=== PATIENT | male | born 1960 | race Caucasian/White ===

== ENCOUNTER 2018-05-28 16:37 | Inpatient (IN) ==
[2018-05-28] MEDS ORDERED: Insulin Human Regular 10 UNIT in 0.9 % Sodium Chloride 10 ML IV ONE (17:05)
--- NOTE | 2018-05-28 17:06 | Emergency Department Note ---
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 insulin use: unspecified fci insulin use status Diabetes mellitus complication status: without complication Qualified Code(s): E11.9 - Type 2 diabetes mellitus without complications Disposition: Admitted As Inpatient Referrals: Elie Plummer MD [Primary Care Provider] - Forms: ED Satisfaction Letter, Work/School Release Time of Disposition: 18:44 (Dr Valles accepted him) General Adult HPI - General Chief complaint: ED General Medical Stated complaint: Hyperglycemia >500 Source: EMS Limitations: no limitations - History of Present Illness HPI Narrative: Patient is a pleasant 57 YO M with past medical history significant for HTN, DM , Dyslipidemia and obesity who is presenting to [facility] Emergency Room with a chief complaint off weakness. EMS reports very elevated BS. Pt c/o dizziness and SOB as well as vague abd pain. He takes his metformin and reports no change in diet or any source of infectious process. Patient denies any fever , chills or night sweats. Pt also denies any eye pain or visual disturbances. There is no sore throat, nasal drainages or facial congestion. There is no chest pain, palpitations or racing heart. Pt also denies any shortness of breath, cough or chest congestion. There is no vomiting or diarrhea. There is no urgency, frequency or dysuria. There is no muskulo-skeletal pain, arthralgia or back pain. Patient also denies any rash, edema or pruritus. There is no neurological manifestations, no headache, no vertigo or weakness. The patient also denies any anxiety, depression, hallucinations and has no homicidal or suicidal ideations. There is no polyuria, polydipsia or recent weight change. There is no easy bruising or bleeding. Review of other systems is otherwise negative except above. 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 Pain Scale: 0 - Related Data Home Medications Medication Instructions Recorded Confirmed metFORMIN [Glucophage] 1,000 mg PO BIDWM 09/28/15 05/28/18 Amlodipine Besylate 10 mg PO DAILY 03/24/16 05/28/18 Fenofibrate Nanocrystallized 145 mg PO DAILY 03/24/16 05/28/18 [Tricor] Furosemide [Lasix] 40 mg PO DAILY PRN 03/24/16 05/28/18 Pravastatin Sodium [Pravachol] 80 mg PO HS 03/24/16 05/28/18 Losartan-Hctz 100-25 mg Tab 1 tab PO DAILY 10/30/17 05/28/18 Venlafaxine HCl [Venlafaxine HCl 150 mg PO DAILY 10/30/17 05/28/18 ER] Previous Rx's Medication Instructions Recorded Ondansetron ODT [Zofran ODT] 4 mg SL Q6HR #24 tab.rapdis 10/30/17 Allergies Allergy/AdvReac Type Severity Reaction Status Date / Time lisinopril AdvReac Cough Verified 10/30/17 19:03 All systems ED: reviewed and negative except as stated. Review of Systems: As Per HPI Constitutional: Denies: fever, chills Eyes: Denies: eye pain, eye discharge ENT ED: Denies: ear pain, throat pain Cardiovascular: Denies: chest pain, palpitations Respiratory: Denies: cough, dyspnea Gastrointestinal: Reports: nausea. Denies: abdominal pain, vomiting Past Medical History - Past Medical History Medical history: Reports: diabetes, hyperlipidemia, hypertension Surgical history: Reports: orthopedic, other (Left shoulder, right elbow, back surgery), other Psychiatric history: Reports: panic disorder - Social History Smoking Status: Current every day smoker Smokeless Tobacco Status: Yes Alcohol use: Reports: none Drug use: Reports: none Physical Exam - General Limitations: no limitations General appearance: alert, lethargic - Head Head exam: atraumatic, normocephalic, normal inspection - Eye Eye exam: Present: normal appearance, PERRL, EOMI - Expanded Eye Exam Pupils: Left: reactive - ENT ENT exam: normal exam, normal oropharynx, mucous membranes moist - Expanded ENT Exam External ear exam: Present: normal external inspection Mouth exam: Present: normal external inspection Teeth exam: Present: normal inspection Throat exam: Present: normal inspection - Neck Neck exam: Present: normal inspection, full ROM, trachea midline - Chest Chest inspection: Present: normal inspection, symmetric chest wall rise - Respiratory Respiratory exam: Present: normal lung sounds bilaterally - Cardiovascular Cardiovascular exam: Present: regular rate, normal rhythm, normal heart sounds - Abdominal Exam Abdominal exam: Present: soft, Non-Tender, other (Repeated abd exam is non tender totally benign after hydration). Absent: tenderness, distention, guarding, rebound, rigidity - Extremities Exam Extremities exam: Present: normal inspection, full ROM. Absent: tenderness, pedal edema - Expanded Upper Extremity Exam Shoulder exam: Present: normal inspection, full ROM Arm exam: Present: normal inspection, full ROM Elbow exam: Present: normal inspection, full ROM Forearm/Wrist exam: Present: normal inspection, full ROM Hand exam: Present: normal inspection, full ROM Vascular exam: Normal: capillary refill, radial pulse - Expanded Lower Extremity Exam Hip/Pelvis exam: Present: normal inspection, full ROM Upper leg exam: Present: normal inspection, full ROM Knee exam: Present: normal inspection, full ROM Lower leg exam: Present: normal inspection, full ROM Ankle exam: Present: normal inspection, full ROM Foot/toe exam: Present: normal inspection, full ROM Neurovascular/Tendon exam: Absent: motor deficit, sensory deficit, tendon deficit - Back Exam Back exam: Present: normal inspection, full ROM. Absent: tenderness - Neurological Exam Neurological exam: Present: alert, oriented X3 - Expanded Neurological Exam Patient oriented to: Present: person, place, time Coma Scale Eye Opening: Spontaneous Coma Scale Motor Response: Obeys Commands Coma Scale Verbal Response: Oriented Coma Scale Total: 15 - Psychiatric Psychiatric exam: Present: normal affect, normal mood - Skin Skin exam: Present: warm, dry, intact, normal color Course Vital Signs Temperature 99.8 F H 05/28/18 16:40 Pulse Rate 110 05/28/18 16:40 Respiratory Rate 14 05/28/18 16:40 Blood Pressure 158/84 05/28/18 16:40 O2 Sat by Pulse Oximetry 94 05/28/18 16:40 Temperature 99.3 F 05/28/18 18:05 Pulse Rate 103 05/28/18 17:50 Respiratory Rate 18 05/28/18 17:50 Blood Pressure 159/80 05/28/18 17:50 O2 Sat by Pulse Oximetry 94 05/28/18 17:50 Oxygen Delivery Oxygen Delivery Room Air Medical Decision Making - MDM Narrative Medical decision making narrative: WE are unable to administer insulin drip at this time due to the unavailability of electrolytes particularly K machine is down DC with pharmacist human capital consultant and he concurred with my plan. Another bolus IV Regular insulin 4 units and hydraion until we get K level ABG r/o DKA his PH is 7.47 - Medical Records Medical records reviewed: Yes I reviewed the patient's medical records. - Lab Data Lab results reviewed: Yes I reviewed the patient's lab results. Result diagrams: 05/28/18 17:45 Lab Results 05/28/18 05/28/18 05/28/18 Range/Units 16:44 16:45 16:46 WBC (4.3-11.1) K/mcL RBC (4.19-5.50) M/mcL Hgb (12.9-16.9) g/dL Hct (37.5-50.1) % MCV (83.0-100.0) fL MCH (28.0-33.3) pg MCHC (31.6-35.5) g/dL RDW (11.5-14.5) % Plt Count (140-400) K/mcL MPV (9.4-12.4) fL Immature Gran % (0-4) % Seg Neutrophils % % Lymphocytes % % Monocytes % % Eosinophils % % Basophils % % Neutrophils # (1.6-8.9) K/mcL Lymphocytes # (0.6-4.6) K/mcL Monocytes # (0.0-1.3) K/mcL Eosinophils # (0.0-0.6) K/mcL Basophils # (0.0-0.2) K/mcL PT (9.4-12.1) Seconds INR APTT Sample Site ABG pH (7.32-7.45) pH Units ABG pCO2 (35-45) mmHg ABG pO2 (85-104) mmHg ABG HCO3 (21-27) mEq/L ABG Total CO2 (20-26) mEq/L ABG O2 Saturation (95-98) % ABG Base Excess (-2 to 3) mEq/L Jc Test O2 Delivery Device Inspired O2 (1-15=lpm [id number]=%) POC Glucose > 600 H* > 600 H* (70-99) mg/dL Troponin I (< 0.04) ng/mL Urine Color Light Yellow (Yellow) Urine Clarity Clear (Clear) Urine pH 5.0 (5.0-8.0) pH Units Ur Specific [place] <= 1.005 L (1.010-1.025) Urine Protein 30 H (Neg-Trace) mg/dL Urine Glucose (UA) >=1000 H (Normal) mg/dL Urine Ketones Negative (Negative) mg/dL Urine Blood Small H (Negative) Urine Nitrite Negative (Negative) Urine Bilirubin Negative (Negative) Urine Urobilinogen Normal (Normal) mg/dL Ur Leukocyte Esterase Negative (Negative) Urine Microscopic RBC 3-5 H (0-3) per hpf Urine Microscopic WBC 0-3 (0-3) per hpf Urine Yeast Many H (None Seen) per hpf Ur Culture Indicated? NO (NO) 05/28/18 05/28/18 05/28/18 Range/Units 17:45 17:45 17:45 WBC 13.6 H (4.3-11.1) K/mcL RBC 4.71 (4.19-5.50) M/mcL Hgb 15.6 (12.9-16.9) g/dL Hct 43.3 (37.5-50.1) % MCV 91.9 (83.0-100.0) fL MCH 33.1 (28.0-33.3) pg MCHC 36.0 H (31.6-35.5) g/dL RDW 12.2 (11.5-14.5) % Plt Count 179 (140-400) K/mcL MPV 12.2 (9.4-12.4) fL Immature Gran % 0.4 (0-4) % Seg Neutrophils % 93.2 % Lymphocytes % 2.4 % Monocytes % 3.5 % Eosinophils % 0.2 % Basophils % 0.3 % Neutrophils # 12.7 H (1.6-8.9) K/mcL Lymphocytes # 0.3 L (0.6-4.6) K/mcL Monocytes # 0.5 (0.0-1.3) K/mcL Eosinophils # 0.0 (0.0-0.6) K/mcL Basophils # 0.0 (0.0-0.2) K/mcL PT 11.0 (9.4-12.1) Seconds INR 1.0 APTT TNP Sample Site ABG pH (7.32-7.45) pH Units ABG pCO2 (35-45) mmHg ABG pO2 (85-104) mmHg ABG HCO3 (21-27) mEq/L ABG Total CO2 (20-26) mEq/L ABG O2 Saturation (95-98) % ABG Base Excess (-2 to 3) mEq/L Jc Test O2 Delivery Device Inspired O2 (1-15=lpm [id number]=%) POC Glucose (70-99) mg/dL Troponin I < 0.03 (< 0.04) ng/mL Urine Color (Yellow) Urine Clarity (Clear) Urine pH (5.0-8.0) pH Units Ur Specific [place] (1.010-1.025) Urine Protein (Neg-Trace) mg/dL Urine Glucose (UA) (Normal) mg/dL Urine Ketones (Negative) mg/dL Urine Blood (Negative) Urine Nitrite (Negative) Urine Bilirubin (Negative) Urine Urobilinogen (Normal) mg/dL Ur Leukocyte Esterase (Negative) Urine Microscopic RBC (0-3) per hpf Urine Microscopic WBC (0-3) per hpf Urine Yeast (None Seen) per hpf Ur Culture Indicated? (NO) 05/28/18 05/28/18 Range/Units 17:45 18:01 WBC (4.3-11.1) K/mcL RBC (4.19-5.50) M/mcL Hgb (12.9-16.9) g/dL Hct (37.5-50.1) % MCV (83.0-100.0) fL MCH (28.0-33.3) pg MCHC (31.6-35.5) g/dL RDW (11.5-14.5) % Plt Count (140-400) K/mcL MPV (9.4-12.4) fL Immature Gran % (0-4) % Seg Neutrophils % % Lymphocytes % % Monocytes % % Eosinophils % % Basophils % % Neutrophils # (1.6-8.9) K/mcL Lymphocytes # (0.6-4.6) K/mcL Monocytes # (0.0-1.3) K/mcL Eosinophils # (0.0-0.6) K/mcL Basophils # (0.0-0.2) K/mcL PT (9.4-12.1) Seconds INR APTT Sample Site L Radial ABG pH 7.47 H (7.32-7.45) pH Units ABG pCO2 32 L (35-45) mmHg ABG pO2 81 L (85-104) mmHg ABG HCO3 23 (21-27) mEq/L ABG Total CO2 24 (20-26) mEq/L ABG O2 Saturation 97 (95-98) % ABG Base Excess 0 (-2 to 3) mEq/L Jc Test Positive O2 Delivery Device Room Air Inspired O2 21.0 (1-15=lpm [id number]=%) POC Glucose > 600 H* (70-99) mg/dL Troponin I (< 0.04) ng/mL Urine Color (Yellow) Urine Clarity (Clear) Urine pH (5.0-8.0) pH Units Ur Specific [place] (1.010-1.025) Urine Protein (Neg-Trace) mg/dL Urine Glucose (UA) (Normal) mg/dL Urine Ketones (Negative) mg/dL Urine Blood (Negative) Urine Nitrite (Negative) Urine Bilirubin (Negative) Urine Urobilinogen (Normal) mg/dL Ur Leukocyte Esterase (Negative) Urine Microscopic RBC (0-3) per hpf Urine Microscopic WBC (0-3) per hpf Urine Yeast (None Seen) per hpf Ur Culture Indicated? (NO) - Radiology Data Radiology results reviewed: Yes I reviewed the patient's radiology results.
[2018-05-28 17:13] LABS: Bilirubin,Urine Negative (Negative); Blood,Urine Small (Negative); Clarity,Urine Clear (Clear); Color,Urine Light Yellow (Yellow); Glucose,Urine (UA) >=1000 mg/dL (Normal); Ketones,Urine Negative (Negative); Leukocyte Esterase,Urine Negative (Negative); Nitrite,Urine Negative (Negative); Protein,Urine 30 mg/dL (Neg-Trace); Specific Gravity,Urine <= 1.005 (1.010-1.025); Urobilinogen,Urine Normal (Normal)
[2018-05-28 17:20] LABS: WBC,Urine 0-3 per hpf (0-3); Yeast,Urine Many per hpf (None Seen)
[2018-05-28] MEDS: 0.9 % Sodium Chloride 1,000 ML IVC SCH ×2 (17:25→19:10)
[2018-05-28 17:47] LABS: ABG Base Excess 0 mEq/L (-2 to 3); ABG HCO3 23 mEq/L (21-27); ABG Oxygen Saturation 97 % (95-98); ABG PCO2 32 mmHg (35-45); ABG PH 7.47 pH Units (7.32-7.45); ABG PO2 81 mmHg (85-104); ABG TCO2 24 mEq/L (20-26)
[2018-05-28 18:12] LABS: Troponin I < 0.03 ng/mL (< 0.04)
[2018-05-28 18:23] LABS: Basophils % 0.3 %; Eosinophils % 0.2 %; Hematocrit 43.3 % (37.5-50.1); Hemoglobin 15.6 g/dL (12.9-16.9); Immature Granulocytes % 0.4 % (0-4); Lymphocytes # 0.3 K/mcL (0.6-4.6); Lymphocytes % 2.4 %; Mean Corpuscular Hemoglobin 33.1 pg (28.0-33.3); Mean Corpuscular Volume 91.9 fL (83.0-100.0); Monocytes # 0.5 K/mcL (0.0-1.3); Monocytes % 3.5 %; Red Blood Count 4.71 M/mcL (4.19-5.50); Red Cell Distribution Width 12.2 % (11.5-14.5); Segmented Neutrophils % 93.2 %
[2018-05-28 18:30] LABS: Neutrophils # 12.7 K/mcL (1.6-8.9); Platelet Count 179 K/mcL (140-400)
[2018-05-28] MEDS ORDERED: 0.9 % Sodium Chloride 1,000 ML IVC ONE (18:30)
[2018-05-28 18:31] LABS: Mean Platelet Volume 12.2 fL (9.4-12.4)
[2018-05-28] MEDS ORDERED: Insulin Regular, Human 100 UNIT/ML IV ONE (18:34)
[2018-05-28] MEDS ORDERED: Naloxone 0.4 MG/ML INJ IVP PRN ×2 (18:51→22:28)
[2018-05-28] MEDS ORDERED: 0.9 % Sodium Chloride 1,000 ML IVC SCH ×2 (19:00→22:28)
[2018-05-28 21:30] LABS: Alanine Aminotransferase 22 Units/L (7-52); Albumin/Globulin Ratio 1.7 (1.1-2.2); Alkaline Phosphatase 119 Units/L (34-104); Aspartate Amino Transferase 16 Units/L (13-39); BUN/Creatinine Ratio 17 (6-26); Bilirubin,Indirect 0.5 mg/dL (0.0-1.2); Bilirubin,Total 0.5 mg/dL (0.3-1.0); Blood Urea Nitrogen 19 mg/dL (6-20); Calcium 7.9 mg/dL (8.6-10.3); Carbon Dioxide 14 mEq/L (23-29); Chloride 85 mEq/L (98-107); Globulin 1.8 g/dL (2.4-3.5); Glucose 734 mg/dL (70-105); Magnesium 1.4 mg/dL (1.6-2.6); Osmolality,Calculated 274 (280-300); Phosphorous 3.6 mg/dL (2.7-4.5); Potassium 3.1 mEq/L (3.5-5.1); Sodium 113 mEq/L (136-145); Total Protein 4.8 g/dL (6.4-8.9); eGFR For Non-African Americans > 60 (> 60)
[2018-05-28] MEDS ORDERED: Potassium Effervescent 25 MEQ TABLET.EFF PO ONE ×2 (21:34→22:28)
[2018-05-28] MEDS ORDERED: 0.9 % Sodium Chloride w KCl 20 MEQ/1,000 ML MLS IVC SCH ×2 (21:45→22:28)
[2018-05-28] MEDS ORDERED: Furosemide 40 MG TABLET PO PRN (22:28)
[2018-05-28] MEDS ORDERED: Insulin LISPRO 300 UNITS/3 ML VIAL SQ ONE (22:29)
[2018-05-28] MEDS: Magnesium Oxide 400 MG TABLET PO SCH (22:30)
[2018-05-28] MEDS ORDERED: *HR* Dextrose 50 % in Water (Syg) 50 ML SYRINGE IVP PRN (22:35)
[2018-05-28] MEDS ORDERED: D5% in Water 1,000 ML IVC PRN (22:35)
[2018-05-28] MEDS ORDERED: Dextrose Gel 15 GM/37.5 ML TUBE PO PRN ×2 (22:35)
--- NOTE | 2018-05-28 22:47 | Internal Med History&Physical ---
Date of Encounter: 05/28/18 Time of Encounter: 22:10 Assessment and Plan (1) Diabetes mellitus Current visit: Yes Status: Acute Suspect poorly controlled. Hyperglycemia will be treated with initially insulin bolus and Accu-Cheks with SSI. Hemoglobin A1c will be checked in a.m. 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 Will continue amlodipine. Qualifiers: Hypertension type: essential hypertension Qualified Code(s): I10 - Essential (primary) hypertension (3) Hyponatremia Current visit: Yes Status: Acute Suspect due to diuretic use and excessive hyperglycemia. Will recheck in a.m. (4) Hypokalemia Current visit: Yes Status: Acute Suspect due to diuretic use. Supplemental potassium has been ordered. (5) Hypomagnesemia Current visit: Yes Status: Acute Suspect due to diuretic use. Magnesium oxide has been ordered. (6) Low TSH level Current visit: Yes Status: Acute TSH was suppressed at 0.033 on 10/30/2017. Recheck in a.m. (7) Gout Current visit: Yes Status: Acute Check uric acid level in a.m. Qualifiers: Gout site: unspecified site Gout etiology: unspecified cause Chronicity: chronic Presence of tophus: without tophus Qualified Code(s): M1A.9XX0 - Chronic gout, unspecified, without tophus (tophi) (8) Low vitamin B12 level Current visit: Yes Status: Acute B12 was 204 on 02/01/2015. Recheck in a.m. Internal Medicine - H&P: HPI Chief complaint: Lethargy and weakness Admitted From: Emergency Dept Plans for Post Hospital Care: Home History of present illness: Mr. Ruiz is a 57 year old male who came to emergency room after family reported him to have weakness and "feeling bad". He reports onset was last evening. He denies pain dyspnea vomiting or diarrhea. He felt he had chills today but had no fever. He was evaluated in emergency room and found to have hyperglycemia with multiple electrolyte imbalances. He was admitted to [facility] floor for ongoing care needs. He is lethargic and frequently falls asleep between questions. Past Med Surg Social Fam HX - Past Medical History Medical history: diabetes, hyperlipidemia, hypertension Psychiatric history: panic disorder - Past Surgical History Surgical History: orthopedic, other (Left shoulder, right elbow, back surgery), other Additional surgical history: back surgery. left shoulder injury. right elbow sx - Social History Smoking Status: Current every day smoker Smokeless Tobacco Status: Yes Alcohol use: none Drug use: none Internal Medicine - H&P: Meds metFORMIN [Glucophage] 1,000 mg PO BIDWM 09/28/15 [History] Amlodipine Besylate 10 mg PO DAILY 03/24/16 [History] Fenofibrate Nanocrystallized [Tricor] 145 mg PO DAILY 03/24/16 [History] Furosemide [Lasix] 40 mg PO DAILY PRN 03/24/16 [History] Pravastatin Sodium [Pravachol] 80 mg PO HS 03/24/16 [History] Losartan-Hctz 100-25 mg Tab 1 tab PO DAILY 10/30/17 [History] Ondansetron ODT [Zofran ODT] 4 mg SL Q6HR #24 tab.rapdis 10/30/17 [Rx] Venlafaxine HCl [Venlafaxine HCl ER] 150 mg PO DAILY 10/30/17 [History] 3 Allergy/AdvReac Type Severity Reaction Status Date / Time lisinopril AdvReac Cough Verified 10/30/17 19:03 All Systems PM: A 10-system review of systems was performed and is negative for pertinent findings except as documented above in the HPI. Review of systems: Review of systems is primarily obtained from patient's . Gen.: His weight is stable the past few months Cardiovascular: He has history of hypertension but denies AL heart failure DVT or pulmonary embolus. He has a history of irregular heart rate but cannot give further details. Respiratory: He has smoked since age 18 up to 2 packs per day. He denies known chronic lung disease. He has GABBIE and has been prescribed CPAP but does not use it regularly. GI: Denies disorders of his liver gallbladder or exocrine pancreas : He denies hematuria dysuria or kidney stones Neurologic: He denies large distribution strokes or seizures. Endocrine: He was diagnosed with DM 2 approximately 2013. He has hyperlipidemia but no known thyroid disease. Hematology/oncology: No history of blood disorders cancers or anemia Psychiatric: He has anxiety depression but denies other mental health issues [place] skeletal: He has been diagnosed with gout. He has had 2 back surgeries with fusion of multiple lumbar vertebra. He denies other bone joint or muscle disorders. - Constitutional Vitals: Temp Pulse Resp BP Pulse Ox 98.0 F 85 13 149/89 96 05/28/18 22:02 05/28/18 22:02 05/28/18 22:23 05/28/18 22:23 05/28/18 22:02 Exam: Gen.: He is a well-developed overweight male lying in bed who appears in no acute distress. He denies pain or dyspnea HEENT: Head is atraumatic and normal cephalic. Eyes: EOMI. There is no scleral icterus. Mouth: Mucosa is moist. Neck: Supple and nontender. There is no thyromegaly or adenopathy noted. Heart: Regular without murmurs gallops or ectopics Lungs: No wheezes or crackles are heard. Abdomen: Soft and nontender. No masses or guarding are noted. Extremities: He has 1-2+ edema of the lower anterior shins bilaterally. Dorsalis pedis and posttibial pulses are 1-2 over 2 bilaterally. Neurologic: Mental status: He is very lethargic. He will awaken and answer some questions with reasonable answers. Cranial nerves: Smile is symmetric. Forehead wrinkles's bilaterally. Tongue protrudes midline. EOMI. Motor: There is no pronator drift. Cerebellar: Finger to nose is intact bilaterally. Skin: Warm and dry Internal Med - H&P Results - Labs CBC & Chem 7: 05/28/18 17:45 05/28/18 17:45
[2018-05-28] MEDS: cefTRIAXone 1,000 MG in Water for inj. (sterile) 20 ML 10 ML IVP SCH (23:33)
[2018-05-28] MEDS: Azithromycin 500 MG in D5% in Water 250 ML IVPB SCH (23:34)
[2018-05-28] MEDS: 0.9 % Sodium Chloride w KCl 20 MEQ/1,000 ML MLS IVC SCH (23:34)
[2018-05-29 05:11] LABS: Mean Platelet Volume 12.4 fL (9.4-12.4); Platelet Count 177 K/mcL (140-400); Red Blood Count 4.39 M/mcL (4.19-5.50); Red Cell Distribution Width 12.4 % (11.5-14.5)
[2018-05-29 06:36] LABS: Hematocrit 40.1 % (37.5-50.1); Hemoglobin 14.1 g/dL (12.9-16.9); Mean Corpuscular Hemoglobin 32.1 pg (28.0-33.3); Mean Corpuscular Volume 91.3 fL (83.0-100.0)
[2018-05-29 06:38] LABS: Mean Corpuscular HGB Conc 35.2 g/dL (31.6-35.5)
[2018-05-29 07:23] LABS: Amphetamine Screen,Urine Negative ng/mL (Cutoff=1000); Barbiturate Screen,Urine Negative ng/mL (Cutoff=200); Benzodiazepines Screen,Urine Negative ng/mL (Cutoff=200); Cannabinoid Screen,Urine Negative ng/mL (Cutoff = 50); Cocaine Screen,Urine Negative ng/mL (Cutoff= 300); Opiate Screen,Urine Negative ng/mL (Cutoff=300); Phencyclidine Screen,Urine Negative ng/mL (Cutoff=25)
[2018-05-29 07:26] LABS: Alanine Aminotransferase 32 Units/L (7-52); Albumin 3.2 g/dL (3.5-5.7); Albumin/Globulin Ratio 1.6 (1.1-2.2); Alkaline Phosphatase 88 Units/L (34-104); Aspartate Amino Transferase 26 Units/L (13-39); BUN/Creatinine Ratio 16 (6-26); Bilirubin,Total 0.2 mg/dL (0.3-1.0); Blood Urea Nitrogen 16 mg/dL (6-20); Calcium 8.5 mg/dL (8.6-10.3); Carbon Dioxide 22 mEq/L (23-29); Chloride 98 mEq/L (98-107); Glucose 386 mg/dL (70-105); Magnesium 1.8 mg/dL (1.6-2.6); Osmolality,Calculated 295 (280-300); Phosphorous 4.7 mg/dL (2.7-4.5); Potassium 3.4 mEq/L (3.5-5.1); Sodium 134 mEq/L (136-145); Total Protein 5.2 g/dL (6.4-8.9); eGFR For Non-African Americans > 60 (> 60)
[2018-05-29 07:56] LABS: Thyroid Stimulating Hormone 0.136 mcIU/mL (0.340-5.600); Uric Acid 6.8 mg/dL (2.3-7.6)
[2018-05-29] MEDS: Magnesium Oxide 400 MG TABLET PO SCH ×2 (08:01→20:50)
[2018-05-29] MEDS: *HR* Metformin 500 MG TABLET PO SCH ×2 (08:01→16:57)
[2018-05-29] MEDS: Insulin LISPRO 300 UNITS/3 ML VIAL SQ SCH ×3 (08:01→16:56)
[2018-05-29] MEDS: Fenofibrate 54 MG TABLET PO SCH (08:01)
[2018-05-29] MEDS: amLODIPine 5 MG TABLET PO SCH (08:01)
[2018-05-29] MEDS ORDERED: Losartan/HCTZ 50-12.5 TABLET PO SCH (09:00)
[2018-05-29] MEDS ORDERED: Venlafaxine XR (24 HR) 150 MG CAP.ER.24H PO SCH (09:00)
[2018-05-29] MEDS: 0.9 % Sodium Chloride w KCl 20 MEQ/1,000 ML MLS IVC SCH ×2 (09:14→18:26)
[2018-05-29 11:31] LABS: Cholesterol 540 mg/dL (< 200); HDL Cholesterol 18 mg/dL (40-59); Triglycerides > 5000 mg/dL (< 150)
[2018-05-29] MEDS: Ondansetron ODT 4 MG TAB.RAPDIS SL SCH ×3 (11:57→16:58)
[2018-05-29 13:22] LABS: Estimated Average Glucose 415 mg/dl; Hemoglobin A1C 16.1 %
--- NOTE | 2018-05-29 16:30 | Internal Med Progress Note ---
Date of Encounter: 05/29/18 Time of Encounter: 16:20 - Assessment and plan (1) Diabetes mellitus Current Visit: Yes Status: Acute Assessment and plan: May 29. Extremely poor control overall with hemoglobin A1c 16.1%. Start basal insulin and add additional oral agents. Continue Accu-Cheks with SSI. 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 Continue amlodipine. Qualifiers: Hypertension type: essential hypertension Qualified Code(s): I10 - Essential (primary) hypertension (3) Hyponatremia Current Visit: Yes Status: Acute Assessment and plan: May 29. Suspect level yesterday was due to combination of hyponatremia from diuretic use and pseudohyponatremia from hyperglycemia and hyperlipidemia. Remain off diuretics, adjust medicine for hyperlipidemia, and monitor labs. (4) Hypokalemia Current Visit: Yes Status: Acute Assessment and plan: May 29. Potassium improved to 3.4. Continue present regimen. (5) Hypomagnesemia Current Visit: Yes Status: Acute Assessment and plan: May 29. Magnesium level improved to 1.8. Continue magnesium oxide supplement. (6) Low TSH level Current Visit: Yes Status: Acute Assessment and plan: May 29. Improved since October 2017 level of 0.033. Check T4 and T3 levels. (7) Gout Current Visit: Yes Status: Acute Assessment and plan: May 29. Uric acid level stable at 6.8. Continue to observe off medication. Qualifiers: Gout site: unspecified site Gout etiology: unspecified cause Chronicity: chronic Presence of tophus: without tophus Qualified Code(s): M1A.9XX0 - Chronic gout, unspecified, without tophus (tophi) (8) Low vitamin B12 level Current Visit: Yes Status: Acute Assessment and plan: May 29. B12 level low at 125. Will give B12 injection and start oral supplement. (9) Hyperlipidemia Current Visit: Yes Status: Chronic Assessment and plan: May 29. Discontinue Pravachol and start atorvastatin 80 mg daily. Qualifiers: Hyperlipidemia type: mixed hyperlipidemia Qualified Code(s): E78.2 - Mixed hyperlipidemia - Subjective Interval history: May 29. He has no new complaints and feels better. - Constitutional Vitals: Temp Pulse Resp BP Pulse Ox 98.4 F 63 17 162/87 95 05/29/18 15:32 05/29/18 15:32 05/29/18 15:32 05/29/18 15:32 05/29/18 15:32 Exam: He is resting comfortably in bed and appears in no acute distress. His affect is overall cheerful. He is less lethargic than last evening. I reviewed his medications. I discussed pertinent lab results with him. Internal Medicine: Result - Labs CBC & Chem 7: 05/29/18 03:47 05/29/18 03:47 Labs: Short CBC 05/29/18 Range/Units 03:47 WBC 10.7 (4.3-11.1) K/mcL Hgb 14.1 D (12.9-16.9) g/dL Hct 40.1 (37.5-50.1) % Plt Count 177 (140-400) K/mcL BMP 05/29/18 03:47 Sodium 134 L D Potassium 3.4 L Chloride 98 Carbon Dioxide 22 L BUN 16 Creatinine 1.01 Glucose 386 H Calcium 8.5 L Liver Function 05/29/18 Range/Units 03:47 Total Bilirubin 0.2 L (0.3-1.0) mg/dL AST 26 (13-39) Units/L ALT 32 (7-52) Units/L Alkaline Phosphatase 88 (34-104) Units/L Albumin 3.2 L (3.5-5.7) g/dL - ABG Interpretation ABG results: ABG ABG pH 7.47 pH Units (7.32-7.45) H 05/28/18 17:45 ABG pCO2 32 mmHg (35-45) L 05/28/18 17:45 ABG pO2 81 mmHg (85-104) L 05/28/18 17:45 ABG O2 Saturation 97 % (95-98) 05/28/18 17:45 PT/INR, D-dimer PT 11.0 Seconds (9.4-12.1) 05/28/18 17:45 Consult Discharge Plan - Plan Referrals: Elie lPummer MD [Primary Care Provider] - 1 week
[2018-05-29] MEDS ORDERED: Cyanocobalamin (B-12) 1,000 MCG/ML VIAL IM ONE (16:40)
[2018-05-29] MEDS: *HR* SitaGLIPtin 25 MG TABLET PO SCH (18:25)
[2018-05-29] MEDS ORDERED: Insulin DETEMIR 100 UNIT/ML X5UNITS SQ SCH (21:00)
[2018-05-29] MEDS ORDERED: Insulin LISPRO 300 UNITS/3 ML VIAL SQ SCH (21:00)
[2018-05-29] MEDS: cefTRIAXone 1,000 MG in Water for inj. (sterile) 20 ML 10 ML IVP SCH (23:14)
[2018-05-29] MEDS: Azithromycin 500 MG in D5% in Water 250 ML IVPB SCH (23:29)
[2018-05-30] MEDS: Ondansetron ODT 4 MG TAB.RAPDIS SL SCH ×2 (00:31→07:08)
[2018-05-30 06:38] VITALS: BP 128/80
[2018-05-30 06:52] LABS: Basophils % 0.3 %; Eosinophils # 0.1 K/mcL (0.0-0.6); Eosinophils % 1.5 %; Hematocrit 37.9 % (37.5-50.1); Hemoglobin 13.3 g/dL (12.9-16.9); Immature Granulocytes % 0.3 % (0-4); Lymphocytes # 1.7 K/mcL (0.6-4.6); Lymphocytes % 26.2 %; Mean Corpuscular HGB Conc 35.1 g/dL (31.6-35.5); Mean Corpuscular Hemoglobin 32.5 pg (28.0-33.3); Mean Corpuscular Volume 92.7 fL (83.0-100.0); Mean Platelet Volume 12.5 fL (9.4-12.4); Monocytes # 0.5 K/mcL (0.0-1.3); Monocytes % 8.3 %; Neutrophils # 4.1 K/mcL (1.6-8.9); Platelet Count 175 K/mcL (140-400); Red Blood Count 4.09 M/mcL (4.19-5.50); Red Cell Distribution Width 12.9 % (11.5-14.5); Segmented Neutrophils % 63.4 %
[2018-05-30] MEDS: Fenofibrate 54 MG TABLET PO SCH (07:48)
[2018-05-30] MEDS: 0.9 % Sodium Chloride w KCl 20 MEQ/1,000 ML MLS IVC SCH (07:48)
[2018-05-30] MEDS: amLODIPine 5 MG TABLET PO SCH (07:49)
[2018-05-30] MEDS: Magnesium Oxide 400 MG TABLET PO SCH (07:49)
[2018-05-30] MEDS: *HR* Metformin 500 MG TABLET PO SCH (07:49)
[2018-05-30] MEDS: *HR* SitaGLIPtin 25 MG TABLET PO SCH (07:49)
[2018-05-30] MEDS: Insulin LISPRO 300 UNITS/3 ML VIAL SQ SCH (07:52)
[2018-05-30 07:55] LABS: Chloride 101 mEq/L (98-107); Potassium 4.3 mEq/L (3.5-5.1)
[2018-05-30 07:56] LABS: BUN/Creatinine Ratio 13 (6-26); Blood Urea Nitrogen 12 mg/dL (6-20); Calcium 7.9 mg/dL (8.6-10.3); Carbon Dioxide 26 mEq/L (23-29); Glucose 282 mg/dL (70-105); Osmolality,Calculated 294 (280-300); eGFR For Non-African Americans > 60 (> 60)
[2018-05-30] MEDS ORDERED: *HR* Glimepiride 2 MG TABLET PO SCH (08:00)
[2018-05-30 08:04] LABS: Sodium 137 mEq/L (136-145)
[2018-05-30] MEDS ORDERED: Cyanocobalamin (B-12) 1,000 MCG TABLET PO SCH (09:00)
--- NOTE | 2018-05-30 09:52 | Discharge Summary ---
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: unspecified group home insulin use status Diabetes mellitus complication status : without complication Qualified Code(s): E11.9 - Type 2 diabetes mellitus without complications (2) Hypertension Priority: Secondary Status: Chronic Qualifiers: Hypertension type: essential hypertension Qualified Code(s): I10 - Essential (primary) hypertension (3) Hyponatremia Priority: Secondary Status: Resolved (4) Hypokalemia Priority: Secondary Status: Resolved (5) Hypomagnesemia Priority: Secondary Status: Resolved (6) Low TSH level Priority: Secondary Status: Acute (7) Gout Priority: Secondary Status: Chronic Qualifiers: Gout site: unspecified site Gout etiology: unspecified cause Chronicity: chronic Presence of tophus: without tophus Qualified Code(s): M1A.9XX0 - Chronic gout, unspecified, without tophus (tophi) (8) Low vitamin B12 level Priority: Secondary Status: Acute (9) Hyperlipidemia Priority: Secondary Status: Chronic Qualifiers: Hyperlipidemia type: mixed hyperlipidemia Qualified Code(s): E78.2 - Mixed hyperlipidemia Hospital course: Mr. Ruiz is a 57 year old male who came to emergency room after family reported him to have weakness and "feeling bad". He reports onset was last evening. He denies pain dyspnea vomiting or diarrhea. He felt he had chills today but had no fever. He was evaluated in emergency room and found to have hyperglycemia with multiple electrolyte imbalances. He was admitted to [facility] floor for ongoing care needs. Initial orders were written by the emergency room physician. I saw him on May 28 and performed a history and physical. He was started on IV fluids and Accu-Cheks with SSI. Hemoglobin A1c returned significantly abnormal at 16.1 %. Amaryl and Januvia were started. He was given Levemir during hospitalization but will not continue this at home upon discharge. His blood sugars improved to a safe range. I encouraged him to follow a [id number] calorie ADA diet. His PCP can monitor progress. Losartan/HCTZ and Lasix were held. Amlodipine was continued and blood pressure remained well controlled. Electrolyte abnormalities resolved with sodium 137, potassium 4.3, and magnesium 1.8 by time of discharge. Creatinine improved to 0.92. He will remain off losartan/HCTZ and Lasix. B12 level returned low at 246. He was given B12 injection started on oral B12 supplement. TSH returned slightly low at 0.136. Free T3 and T4 were ordered with results pending at time of discharge. He was started on empiric Rocephin and Zithromax for the leukocytosis with left shift seen on admission. CBC and left shift normalized by day of discharge. He remained afebrile. He will continue with antibiotic and probiotic for 2 additional days at home. Lipid profile showed total cholesterol 540, triglycerides> 5000, HDL 18, and total/HDL ratio of 30.0. He was changed from Pravachol to high-dose atorvastatin. Fenofibrate was continued. His PCP can monitor lipid status. On May 30 he felt stable for discharge home. He will follow with his PCP within 1 week. I encouraged him to discontinue smoking. - Time Spent with Patient Total time spent providing and/or coordinating discharge services: - Discharge Medications Prescriptions: Cefuroxime PO [Ceftin] 500 mg PO Q12HR #4 tablet Atorvastatin [Lipitor] 80 mg PO HS #60 tablet Azithromycin [Zithromax] 250 mg PO DAILY #2 tablet Cyanocobalamin (B-12) [Vitamin B12] 1,000 mcg PO DAILY #30 tablet Glimepiride [Amaryl] 2 mg PO 0800 #30 tablet Lactobacillus [Culturelle] 1 each PO BID #4 cap.sprink SitaGLIPtin [Januvia] 100 mg PO DAILY #30 tablet Home Medications: metFORMIN [Glucophage] 1,000 mg PO BIDWM 09/28/15 [History] Amlodipine Besylate 10 mg PO DAILY 03/24/16 [History] Fenofibrate Nanocrystallized [Tricor] 145 mg PO DAILY 03/24/16 [History] Ondansetron ODT [Zofran ODT] 4 mg SL Q6HR #24 tab.rapdis 10/30/17 [Rx] Venlafaxine HCl [Venlafaxine HCl ER] 150 mg PO DAILY 10/30/17 [History] Atorvastatin [Lipitor] 80 mg PO HS #60 tablet 05/30/18 [Rx] Azithromycin [Zithromax] 250 mg PO DAILY #2 tablet 05/30/18 [Rx] Cefuroxime PO [Ceftin] 500 mg PO Q12HR #4 tablet 05/30/18 [Rx] Cyanocobalamin (B-12) [Vitamin B12] 1,000 mcg PO DAILY #30 tablet 05/30/18 [Rx] Glimepiride [Amaryl] 2 mg PO 0800 #30 tablet 05/30/18 [Rx] Lactobacillus [Culturelle] 1 each PO BID #4 cap.sprink 05/30/18 [Rx] SitaGLIPtin [Januvia] 100 mg PO DAILY #30 tablet 05/30/18 [Rx] Allergies/Adverse Reactions: 3 Allergy/AdvReac Type Severity Reaction Status Date / Time lisinopril AdvReac Cough Verified 10/30/17 19:03 Date of admission: 05/28/18 22:55 Primary care physician: Elie Plummer MD - Constitutional Vitals: Temp Pulse Resp BP Pulse Ox 97.8 F 63 16 128/80 96 05/30/18 06:35 05/30/18 06:35 05/30/18 06:35 05/30/18 06:35 05/30/18 06:35 - Patient Status Disposition: Home, Self-Care - Discharge Instructions Follow Up With: Elie Plummer MD [Primary Care Provider] - 1 week - Diet and Activity Activity: resume usual activities as tolerated Diet: diabetic diet
[2018-05-30 09:56] LABS: Magnesium 1.6 mg/dL (1.6-2.6)
[2018-05-30 12:01] LABS: Triiodothyronine (T3) Free 2.52 pg/mL (2.50-3.90)
== END 2018-05-30 12:00 | disposition home or self-care (01) | DRG 638 ==
LOC: EMEROOPIK 16:37 → INPPIK 16:37
PROVIDERS: ADMIT Internal Medicine; ATTEND Internal Medicine

== ENCOUNTER 2019-06-22 19:38 | Observation (INO) ==
[2019-06-22 20:10] LABS: Bilirubin,Urine Negative (Negative); Blood,Urine Small (Negative); Clarity,Urine Clear (Clear); Color,Urine Yellow (Yellow); Glucose,Urine (UA) >=1000 mg/dL (Normal); Ketones,Urine Negative (Negative); Leukocyte Esterase,Urine Negative (Negative); Nitrite,Urine Negative (Negative); PH,Urine 5.5 pH Units (5.0-8.0); Protein,Urine >=300 mg/dL (Neg-Trace); Specific Gravity,Urine 1.025 (1.010-1.025); Urobilinogen,Urine Normal (Normal)
[2019-06-22 20:19] LABS: Squamous Epithelial Cell,Urine Few per lpf (None-Few)
--- NOTE | 2019-06-22 20:19 | Emergency Department Note ---
Disposition Clinical Impression: RACHEL (acute kidney injury), Dehydration, Hyperglycemia Disposition: Admitted As Inpatient Condition: Good Referrals: NONE,PCP [Non-Partnered Physician] - Forms: ED Satisfaction Letter, Work/School Release Time of Disposition: 21:31 General Adult HPI - General Chief complaint: ED General Medical Stated complaint: high blood sugar Time Seen by Provider: 06/22/19 20:00 Source: patient Mode of arrival: ambulatory Limitations: no limitations Nursing Notes Reviewed: Yes Vital Signs Reviewed: Yes - History of Present Illness HPI Narrative: 58-year-old male who presents today stating that he has not felt well for a few days has had increased thirst and urination. He states he is a diabetic and has not been following a diabetic diet. He states he has not checked his sugar recently rechecked at scene was over 400. He states he takes metformin 1000 mg twice a day and it is only medication for diabetes. He states he is not any fevers or chills and been no nausea vomiting or diarrhea. He denies any other symptoms. 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 Pain Scale: 6 - Related Data Home Medications Medication Instructions Recorded Confirmed metFORMIN [Glucophage] 1,000 mg PO BIDWM 09/28/15 06/22/19 Amlodipine Besylate 10 mg PO DAILY 03/24/16 06/22/19 Fenofibrate Nanocrystallized 145 mg PO DAILY 03/24/16 06/22/19 [Tricor] Venlafaxine HCl [Venlafaxine HCl 150 mg PO DAILY 10/30/17 06/22/19 ER] Previous Rx's Medication Instructions Recorded Atorvastatin [Lipitor] 80 mg PO HS #60 tablet 05/30/18 Azithromycin [Zithromax] 250 mg PO DAILY #2 tablet 05/30/18 Allergies Allergy/AdvReac Type Severity Reaction Status Date / Time lisinopril AdvReac Cough Verified 06/22/19 19:45 Review of Systems: All other systems are negative except as noted/marked Chart generated with voice recognition software Nursing notes reviewed Old records reviewed Past Medical History - Past Medical History Attestation: Yes The following information was validated with the patient. Source: patient, old records reviewed, nursing notes reviewed Medical history: Reports: cancer, diabetes, hyperlipidemia, hypertension Surgical history: Reports: orthopedic, other (Left shoulder, right elbow, back surgery), other Psychiatric history: Reports: panic disorder - Social History Smoking Status: Current some day smoker Smokeless Tobacco Status: Yes Alcohol use: Reports: none Drug use: Reports: none Physical Exam General: NAD, VSS Head: normocephalic, atraumatic Eyes: EOMI, PERRLA mouth: Dry mucous membranes Neck: NO CLA, Supple Chest wall: normal rise, no crepitus, no deformity noted Lungs: moving air well, no distress Heart: RRR, no murmur Abd: soft, nontender, BS normal : deferred MSK: strength equal in all four extremities +1 pitting edema bilateral lower extremities Ext: moves all four extremities, no obvious deformities Skin: cap refill normal, warm, dry neuro : CN2-12 grossly intact, A&Ox3 Psych: normal affect, not anxious - General Limitations: no limitations Course Vital Signs Temperature 97.5 F L 06/22/19 19:38 Pulse Rate 82 06/22/19 19:38 Respiratory Rate 17 06/22/19 19:38 Blood Pressure 165/96 06/22/19 19:38 O2 Sat by Pulse Oximetry 82 06/22/19 19:38 Temperature 97.5 F L 06/22/19 19:38 Pulse Rate 82 06/22/19 19:38 Respiratory Rate 17 06/22/19 19:38 Blood Pressure 165/96 06/22/19 19:38 O2 Sat by Pulse Oximetry 82 06/22/19 19:38 Oxygen Delivery Oxygen Delivery Room Air Medical Decision Making - [facility] [place] Narrative Medical decision making narrative: 58-year-old male who presents today with dehydration hyperglycemia and not feeling well. He is in acute kidney injury at this time. I started him on IV fluids. After some fluids and an initial dose of insulin and his sugar has a ligamentous 300. He is currently only drinking water at bedside. He states that he still feeling pretty tired. We are continuing IV fluids at this time. Discussed the fact that because his kidney function is decreasing his sugars elevated and is only on metformin at this time for his diabetes control I do think that he needs to be admitted overnight for hydration and observation his diabetes education. Patient's agreeable to this. Currently waiting to find out if they have a bed here or feel need to be transferred to another facility.[id number] after [facility] accepted the patient. Patient will be admitted to the floor for Rachel dehydration hyperglycemia - Medical Records Medical records reviewed: Yes I reviewed the patient's medical records. - Lab Data Lab results reviewed: Yes I reviewed the patient's lab results. Result diagrams: 06/22/19 20:38 06/22/19 20:38 Lab Results 06/22/19 06/22/19 06/22/19 Range/Units 20:02 20:38 20:38 WBC 8.0 (4.3-11.1) K/mcL RBC 5.19 (4.19-5.50) M/mcL Hgb 16.3 (12.9-16.9) g/dL Hct 46.3 (37.5-50.1) % MCV 89.2 (83.0-100.0) fL MCH 31.4 (28.0-33.3) pg MCHC 35.2 (31.6-35.5) g/dL RDW 12.7 (11.5-14.5) % Plt Count 207 (140-400) K/mcL MPV 11.7 (9.4-12.4) fL Immature Gran % 0.4 (0-4) % Seg Neutrophils % 65.8 % Lymphocytes % 25.2 % Monocytes % 6.5 % Eosinophils % 1.3 % Basophils % 0.8 % Neutrophils # 5.2 (1.6-8.9) K/mcL Lymphocytes # 2.0 (0.6-4.6) K/mcL Monocytes # 0.5 (0.0-1.3) K/mcL Eosinophils # 0.1 (0.0-0.6) K/mcL Basophils # 0.1 (0.0-0.2) K/mcL Sample Site ABG pH (7.32-7.45) pH Units ABG pCO2 (35-45) mmHg ABG pO2 (85-104) mmHg ABG HCO3 (21-27) mEq/L ABG Total CO2 (20-26) mEq/L ABG O2 Saturation (95-98) % ABG Base Excess (-2 to 3) mEq/L Jc Test O2 Delivery Device Sodium 131 L (136-145) mEq/L Potassium 3.7 (3.5-5.1) mEq/L Chloride 98 (98-107) mEq/L Carbon Dioxide 24 (23-29) mEq/L BUN 25 H (6-20) mg/dL Creatinine 1.64 H (0.70-1.30) mg/dL Est GFR ( Amer) 53 L (> 60) Est GFR (Non-Af Amer) 44 L (> 60) BUN/Creatinine Ratio 15 (6-26) Glucose 342 H (70-105) mg/dL Calculated Osmolality 290 (280-300) Calcium 9.3 (8.6-10.3) mg/dL Magnesium 1.7 (1.6-2.6) mg/dL Total Bilirubin 0.4 (0.3-1.0) mg/dL AST 19 (13-39) Units/L ALT 25 (7-52) Units/L Alkaline Phosphatase 70 (34-104) Units/L Serum Total Protein 7.0 (6.4-8.9) g/dL Albumin 3.9 (3.5-5.7) g/dL Globulin 3.1 (2.4-3.5) g/dL Albumin/Globulin Ratio 1.3 (1.1-2.2) Beta-Hydroxybutyric Acd (0.02-0.27) mmol/L Urine Color Yellow (Yellow) Urine Clarity Clear (Clear) Urine pH 5.5 (5.0-8.0) pH Units Ur Specific [place] 1.025 (1.010-1.025) Urine Protein >=300 H (Neg-Trace) mg/dL Urine Glucose (UA) >=1000 H (Normal) mg/dL Urine Ketones Negative (Negative) mg/dL Urine Blood Small H (Negative) Urine Nitrite Negative (Negative) Urine Bilirubin Negative (Negative) Urine Urobilinogen Normal (Normal) mg/dL Ur Leukocyte Esterase Negative (Negative) Ur Squamous Epith Cells Few (None-Few) per lpf Other Crystals Present Urine Mucus Few (Few) Ur Culture Indicated? NO (NO) 06/22/19 06/22/19 Range/Units 20:38 20:49 WBC (4.3-11.1) K/mcL RBC (4.19-5.50) M/mcL Hgb (12.9-16.9) g/dL Hct (37.5-50.1) % MCV (83.0-100.0) fL MCH (28.0-33.3) pg MCHC (31.6-35.5) g/dL RDW (11.5-14.5) % Plt Count (140-400) K/mcL MPV (9.4-12.4) fL Immature Gran % (0-4) % Seg Neutrophils % % Lymphocytes % % Monocytes % % Eosinophils % % Basophils % % Neutrophils # (1.6-8.9) K/mcL Lymphocytes # (0.6-4.6) K/mcL Monocytes # (0.0-1.3) K/mcL Eosinophils # (0.0-0.6) K/mcL Basophils # (0.0-0.2) K/mcL Sample Site R Radial ABG pH 7.41 (7.32-7.45) pH Units ABG pCO2 37 (35-45) mmHg ABG pO2 76 L (85-104) mmHg ABG HCO3 24 (21-27) mEq/L ABG Total CO2 25 (20-26) mEq/L ABG O2 Saturation 95 (95-98) % ABG Base Excess -1 (-2 to 3) mEq/L Jc Test Positive O2 Delivery Device Room Air Sodium (136-145) mEq/L Potassium (3.5-5.1) mEq/L Chloride (98-107) mEq/L Carbon Dioxide (23-29) mEq/L BUN (6-20) mg/dL Creatinine (0.70-1.30) mg/dL Est GFR ( Amer) (> 60) Est GFR (Non-Af Amer) (> 60) BUN/Creatinine Ratio (6-26) Glucose (70-105) mg/dL Calculated Osmolality (280-300) Calcium (8.6-10.3) mg/dL Magnesium (1.6-2.6) mg/dL Total Bilirubin (0.3-1.0) mg/dL AST (13-39) Units/L ALT (7-52) Units/L Alkaline Phosphatase (34-104) Units/L Serum Total Protein (6.4-8.9) g/dL Albumin (3.5-5.7) g/dL Globulin (2.4-3.5) g/dL Albumin/Globulin Ratio (1.1-2.2) Beta-Hydroxybutyric Acd 0.53 H (0.02-0.27) mmol/L Urine Color (Yellow) Urine Clarity (Clear) Urine pH (5.0-8.0) pH Units Ur Specific [place] (1.010-1.025) Urine Protein (Neg-Trace) mg/dL Urine Glucose (UA) (Normal) mg/dL Urine Ketones (Negative) mg/dL Urine Blood (Negative) Urine Nitrite (Negative) Urine Bilirubin (Negative) Urine Urobilinogen (Normal) mg/dL Ur Leukocyte Esterase (Negative) Ur Squamous Epith Cells (None-Few) per lpf Other Crystals Urine Mucus (Few) Ur Culture Indicated? (NO) - Radiology Data Radiology results reviewed: Yes I reviewed the patient's radiology results. - EKG Data EKG #1 EKG attestation: Yes I reviewed and interpreted this EKG. EKG results narrative: EKG interpreted by myself as sinus rhythm with rate of 90 QTC of [address] elevation
[2019-06-22 20:20] LABS: Mucus,Urine Few (Few); Other Crystals,Urine Present
[2019-06-22] MEDS ORDERED: Insulin Regular, Human 100 UNIT/ML IV ONE (20:22)
[2019-06-22] MEDS ORDERED: *HR* Dextrose 50 % in Water (Syg) 50 ML SYRINGE IVP PRN ×2 (20:22→22:32)
[2019-06-22 20:46] LABS: Basophils # 0.1 K/mcL (0.0-0.2); Basophils % 0.8 %; Eosinophils # 0.1 K/mcL (0.0-0.6); Eosinophils % 1.3 %; Hematocrit 46.3 % (37.5-50.1); Hemoglobin 16.3 g/dL (12.9-16.9); Immature Granulocytes % 0.4 % (0-4); Lymphocytes % 25.2 %; Mean Corpuscular HGB Conc 35.2 g/dL (31.6-35.5); Mean Corpuscular Hemoglobin 31.4 pg (28.0-33.3); Mean Corpuscular Volume 89.2 fL (83.0-100.0); Mean Platelet Volume 11.7 fL (9.4-12.4); Monocytes # 0.5 K/mcL (0.0-1.3); Monocytes % 6.5 %; Neutrophils # 5.2 K/mcL (1.6-8.9); Platelet Count 207 K/mcL (140-400); Red Blood Count 5.19 M/mcL (4.19-5.50); Red Cell Distribution Width 12.7 % (11.5-14.5); Segmented Neutrophils % 65.8 %
[2019-06-22 20:52] LABS: ABG Base Excess -1 mEq/L (-2 to 3); ABG HCO3 24 mEq/L (21-27); ABG Oxygen Saturation 95 % (95-98); ABG PCO2 37 mmHg (35-45); ABG PH 7.41 pH Units (7.32-7.45); ABG PO2 76 mmHg (85-104); ABG TCO2 25 mEq/L (20-26)
[2019-06-22] MEDS: 0.9 % Sodium Chloride 1,000 ML IVC SCH ×3 (21:10→23:00)
[2019-06-22 21:14] LABS: Albumin 3.9 g/dL (3.5-5.7); Albumin/Globulin Ratio 1.3 (1.1-2.2); Bilirubin,Total 0.4 mg/dL (0.3-1.0); Calcium 9.3 mg/dL (8.6-10.3); Globulin 3.1 g/dL (2.4-3.5); Magnesium 1.7 mg/dL (1.6-2.6); Potassium 3.7 mEq/L (3.5-5.1)
[2019-06-22] MEDS ORDERED: 0.9 % Sodium Chloride 1,000 ML IVC ONE (21:20)
[2019-06-22] MEDS ORDERED: Insulin Human Regular 15 UNIT in 0.9 % Sodium Chloride 10 ML IV ONE ×2 (21:27→22:32)
[2019-06-22] MEDS ORDERED: MOM Conc 10 ML UD.LIQ PO PRN (22:32)
[2019-06-22] MEDS ORDERED: Mag Hydrox/Al Hydrox/Simeth 30 ML UDC PO PRN (22:32)
[2019-06-22] MEDS ORDERED: Naloxone 0.4 MG/ML INJ IVP PRN (22:32)
[2019-06-22] MEDS ORDERED: Ondansetron 4 MG/2 ML VIAL IVP PRN (22:32)
[2019-06-22] MEDS ORDERED: Acetaminophen 325 MG TABLET PO PRN (22:32)
[2019-06-22] MEDS ORDERED: Ibuprofen 400 MG TABLET PO PRN (22:32)
[2019-06-23] MEDS: 0.9 % Sodium Chloride 1,000 ML IVC SCH (06:48)
[2019-06-23 06:56] LABS: Basophils % 0.5 %; Eosinophils # 0.1 K/mcL (0.0-0.6); Eosinophils % 1.4 %; Hematocrit 42.6 % (37.5-50.1); Hemoglobin 14.8 g/dL (12.9-16.9); Immature Granulocytes % 0.4 % (0-4); Lymphocytes # 1.8 K/mcL (0.6-4.6); Lymphocytes % 22.6 %; Mean Corpuscular HGB Conc 34.7 g/dL (31.6-35.5); Mean Corpuscular Hemoglobin 31.2 pg (28.0-33.3); Mean Corpuscular Volume 89.9 fL (83.0-100.0); Mean Platelet Volume 11.6 fL (9.4-12.4); Monocytes # 0.6 K/mcL (0.0-1.3); Monocytes % 7.8 %; Neutrophils # 5.3 K/mcL (1.6-8.9); Platelet Count 177 K/mcL (140-400); Red Blood Count 4.74 M/mcL (4.19-5.50); Red Cell Distribution Width 12.8 % (11.5-14.5); Segmented Neutrophils % 67.3 %; White Blood Count 7.9 K/mcL (4.3-11.1)
[2019-06-23 07:15] LABS: BUN/Creatinine Ratio 15 (6-26); Blood Urea Nitrogen 20 mg/dL (6-20); Calcium 8.6 mg/dL (8.6-10.3); Carbon Dioxide 23 mEq/L (23-29); Chloride 101 mEq/L (98-107); Glucose 309 mg/dL (70-105); Osmolality,Calculated 290 (280-300); Potassium 3.9 mEq/L (3.5-5.1); Sodium 133 mEq/L (136-145); eGFR For African Americans > 60 (> 60); eGFR For Non-African Americans 56 (> 60)
[2019-06-23] MEDS ORDERED: *HR* Metformin 500 MG TABLET PO SCH (08:00)
[2019-06-23] MEDS ORDERED: amLODIPine 5 MG TABLET PO SCH (09:00)
[2019-06-23] MEDS ORDERED: Venlafaxine XR (24 HR) 150 MG CAP.ER.24H PO SCH (09:00)
[2019-06-23 09:38] LABS: Estimated Average Glucose 266 mg/dl
[2019-06-23 10:27] VITALS: BP 146/75
--- NOTE | 2019-06-23 12:11 | Internal Med History&Physical ---
Date of Encounter: 06/23/19 Time of Encounter: 11:40 Assessment and Plan (1) Hyperglycemia Current visit: Yes Status: Acute Blood sugars now slightly improved Hemoglobin A1c shows significant fluctuation in the past 4 years. I strongly encouraged him to monitor blood sugars more closely. He will be given Januvia in addition to metformin. His PCP can monitor and adjust medications further as needed. (2) Low TSH level Current visit: No Status: Acute Present on most labs since May 2014. T4 and T3 were normal at 0.84 ng/DL and 2.52 pg/dl respectively 05/29/2018. His PCP can do further workup and/or refer as needed. (3) Low vitamin B12 level Current visit: No Status: Acute B12 level was low at 246 on 05/29/2018. His PCP can follow-up. (4) RACHEL (acute kidney injury) Current visit: Yes Status: Acute Now improved following hydration with BUN and creatinine decreased to 20 and 1.32 respectively with estimated GFR 57. Internal Medicine - H&P: HPI Chief complaint: Polyuria, polydipsia Admitted From: Emergency Dept Plans for Post Hospital Care: Home History of present illness: Mr. Ruiz is a 58 year old male came to emergency room stating he had one week history of increased thirst and urination. He attributed symptoms initially to working outside and sweating. He came to emergency room and was evaluated and was found to have hyperglycemia with blood glucose 342 MG/DL. He had azotemia with BUN and creatinine 25 and 1.64 respectively with estimated GFR 44. His admitted to [facility] floor for ongoing care needs. He states he feels significantly improved present time and back to his baseline and stable for discharge home. He states he was diagnosed with DM 2 approximately 2013. He does not check blood sugars regularly. He has hyperlipidemia. TSH has been suppressed on most lab since May 2014. Past Med Surg Social Fam HX - Past Medical History Medical history: cancer, diabetes, hyperlipidemia, hypertension Additional medical history: kidney ca Psychiatric history: panic disorder - Past Surgical History Surgical History: orthopedic, other (Left shoulder, right elbow, back surgery), other Additional surgical history: back surgery x2. left shoulder injury. right elbow sx. mass removed from left kidney - Social History Smoking Status: Current some day smoker Smokeless Tobacco Status: Yes Alcohol use: none Drug use: none Internal Medicine - H&P: Meds metFORMIN [Glucophage] 1,000 mg PO BIDWM 09/28/15 [History] Amlodipine Besylate 10 mg PO DAILY 03/24/16 [History] Fenofibrate Nanocrystallized [Tricor] 145 mg PO DAILY 03/24/16 [History] Venlafaxine HCl [Venlafaxine HCl ER] 150 mg PO DAILY 10/30/17 [History] Atorvastatin [Lipitor] 80 mg PO HS #60 tablet 05/30/18 [Rx] Azithromycin [Zithromax] 250 mg PO DAILY #2 tablet 05/30/18 [Rx] Allergy/AdvReac Type Severity Reaction Status Date / Time lisinopril AdvReac Cough Verified 06/22/19 19:45 All Systems PM: A 10-system review of systems was performed and is negative for pertinent findings except as documented above in the HPI. Review of systems: Review of systems from May 2018 [facility] hospitalization were reviewed and revised as below. Gen.: His weight is stable the past few months Cardiovascular: He has history of hypertension but denies [place] heart failure DVT or pulmonary embolus. He has a history of irregular heart rate but cannot give further details. Respiratory: He has smoked since age 18 up to 2 packs per day. He denies known chronic lung disease. He has GABBIE and has been prescribed CPAP but does not use it regularly. GI: Denies disorders of his liver gallbladder or exocrine pancreas : He denies hematuria dysuria or kidney stones Neurologic: He denies large distribution strokes or seizures. Endocrine: As per history of present illness Hematology/oncology: No history of blood disorders cancers or anemia Psychiatric: He has anxiety depression but denies other mental health issues [place] skeletal: He has been diagnosed with gout. He has had 2 back surgeries with fusion of multiple lumbar vertebra. He denies other bone joint or muscle disorders. - Constitutional Vitals: Temp Pulse Resp BP Pulse Ox 97.6 F 62 16 146/75 94 06/23/19 10:06/23/19 10:06/23/19 10:06/23/19 10:06/23/19 10:26 Exam: Gen.: He is a well-developed overweight male lying in bed who appears in no acut e distress at present time HEENT: Head is atraumatic and normocephalic. Eyes: EOMI. There is no scleral icterus. Mouth: Mucosa is moist. Neck: Supple and nontender. There is no thyromegaly or adenopathy noted. Heart: Regular without murmurs gallops or ectopics Lungs: No wheezes or crackles are heard. Abdomen: Soft and nontender. No masses or guarding are noted. Extremities: There is no cyanosis or clubbing noted. He has trace to 1+ edema of the dorsum of the feet and lower anterior shins. Dorsalis pedis and posterior tibial pulses are 1-2 over 2 bilaterally. Neurologic: Mental status: He is talkative and a good historian. Cranial nerves: Smile is symmetric. Forehead wrinkle bilaterally. Tongue protrudes midline. EOMI. Motor: There is no pronator drift. Cerebellar: Finger to nose is intact bilaterally. Skin: Warm and dry Internal Med - H&P Results - Labs CBC & Chem 7: 06/23/19 06:43 06/23/19 06:43 Labs: Short CBC 06/22/19 06/23/19 Range/Units 20:38 06:43 WBC 8.0 7.9 (4.3-11.1) K/mcL Hgb 16.3 14.8 D (12.9-16.9) g/dL Hct 46.3 42.6 (37.5-50.1) % Plt Count 207 177 (140-400) K/mcL Neutrophils # 5.2 5.3 (1.6-8.9) K/mcL BMP 06/22/19 06/23/19 20:38 06:43 Sodium 131 L 133 L Potassium 3.7 3.9 Chloride 98 101 Carbon Dioxide 24 23 BUN 25 H 20 Creatinine 1.64 H 1.32 H Glucose 342 H 309 H Calcium 9.3 8.6 Liver Function 06/22/19 Range/Units 20:38 Total Bilirubin 0.4 (0.3-1.0) mg/dL AST 19 (13-39) Units/L ALT 25 (7-52) Units/L Alkaline Phosphatase 70 (34-104) Units/L Albumin 3.9 (3.5-5.7) g/dL Urine 06/22/19 Range/Units 20:02 Urine Color Yellow (Yellow) Urine Clarity Clear (Clear) Urine pH 5.5 (5.0-8.0) pH Units Ur Specific [place] 1.025 (1.010-1.025) Urine Protein >=300 H (Neg-Trace) mg/dL Urine Glucose (UA) >=1000 H (Normal) mg/dL - ABG Interpretation ABG results: 06/22/19 20:49 ABG pH 7.41 ABG pCO2 37 ABG pO2 76 L ABG HCO3 24 ABG Total CO2 25 ABG O2 Saturation 95 ABG Base Excess -1
--- NOTE | 2019-06-23 12:22 | Discharge Summary ---
Date of Encounter: 06/23/19 Time of Encounter: 11:40 - Discharge Diagnosis (1) Hyperglycemia Priority: Primary Status: Acute (2) Low TSH level Priority: Secondary Status: Chronic (3) Low vitamin B12 level Priority: Secondary Status: Acute (4) RACHEL (acute kidney injury) Priority: Secondary Status: Acute Hospital course: Mr. Ruiz is a 58 year old male who came to emergency room stating he had one week history of increased thirst and urination. He attributed symptoms initially to working outside and sweating. He came to emergency room and was evaluated and was found to have hyperglycemia with blood glucose 342 MG/DL. He had azotemia with BUN and creatinine 25 and 1.64 respectively with estimated GFR 44. His admitted to [facility] floor for ongoing care needs. Initial orders were written by the emergency room physician. I saw him on June 23 and performed a history physical and discharge. He was given IV fluids and BUN and creatinine significantly improved. He was asymptomatic when I saw him on June 23. He wished to be discharged home. I offered him staying another day in the hospital for additional hydration but he declined. I encouraged him to monitor blood sugars more closely. Januvia was started and he will continue metformin also. His PCP can monitor labs. His PCP can follow up on low TSH and B12 levels. Follow-up can also be done to monitor renal indices. I suspect he has chronic kidney disease stage II at baseline. I explained his PCP might choose to add ACEI/ARB and reduce/discontinue amlodipine to lessen edema and provide diabetic renal disease prophylaxis. He will follow with Dr. Plummer within 1 week. - Time Spent with Patient Total time spent providing and/or coordinating discharge services: - Discharge Medications Prescriptions: New Sitagliptin Phosphate [Januvia] 50 mg PO DAILY #30 tab Continued metFORMIN [Glucophage] 1,000 mg PO BIDWM Fenofibrate Nanocrystallized [Tricor] 145 mg PO DAILY Amlodipine Besylate 10 mg PO DAILY Venlafaxine HCl [Venlafaxine HCl ER] 150 mg PO DAILY Atorvastatin [Lipitor] 80 mg PO HS #60 tablet Discontinued Azithromycin [Zithromax] 250 mg PO DAILY #2 tablet Home Medications: metFORMIN [Glucophage] 1,000 mg PO BIDWM 09/28/15 [History] Amlodipine Besylate 10 mg PO DAILY 03/24/16 [History] Fenofibrate Nanocrystallized [Tricor] 145 mg PO DAILY 03/24/16 [History] Venlafaxine HCl [Venlafaxine HCl ER] 150 mg PO DAILY 10/30/17 [History] Atorvastatin [Lipitor] 80 mg PO HS #60 tablet 05/30/18 [Rx] Sitagliptin Phosphate [Januvia] 50 mg PO DAILY #30 tab 06/23/19 [Rx] Allergies/Adverse Reactions: Allergy/AdvReac Type Severity Reaction Status Date / Time lisinopril AdvReac Cough Verified 06/22/19 19:45 Date of admission: 06/22/19 21:57 Primary care physician: Elie Plummer MD - Constitutional Vitals: Temp Pulse Resp BP Pulse Ox 97.6 F 62 16 146/75 94 06/23/19 10:26 06/23/19 10:26 06/23/19 10:26 06/23/19 10:26 06/23/19 10:26 - Patient Status Disposition: Home, Self-Care Condition: Good - Discharge Instructions Follow Up With: Elie Plummer MD [Primary Care Provider] - 1 week - Diet and Activity Activity: resume usual activities as tolerated
== END 2019-06-23 12:50 | disposition home or self-care (01) ==
LOC: EMEROOPIK 19:38 → INPPIK 19:38
PROVIDERS: ADMIT Internal Medicine; ATTEND Internal Medicine